=== PATIENT | female | born 1950 | race Caucasian/White ===

== ENCOUNTER → 2017-07-26 | Outpatient (CLI) | payer MEDICARE, OTHER ==
[~2017-07-26] MED LIST: BENZOCAINE 20% ORAL SPR 60 ML CAN OROPHARYNG ONE; CANA300T PO; LIDOCAINE HCL 2% JELLY 5 ML SYRINGE OTHER ONE; LISI-515 PO; PRIL20TA2; REST0.05 EACH EYE
[2017-07-26 07:24] VITALS: BP 128/60; PULSE 83; RESP 18; TEMP 97; O2SAT 99
== END ==
LOC: HSDC 06:52
PROVIDERS: ATTEND Specialist
DX: K44.9 Diaphragmatic hernia without obstruction or gangrene (principal)
CPT/HCPCS: 91010